=== PATIENT | female | born 1980 | race Two or more races ===

== ENCOUNTER 2025-10-13 00:13 | Emergency (ER) | payer OTHER ==
[~2025-10-13] VITALS: Ht 165.1 cm; Wt 72.6 kg
[2025-10-13] MEDS ORDERED: KETOROLAC TROMETHAMINE 30 MG VIAL IV STA (01:31)
[2025-10-13] MEDS ORDERED: KETOROLAC TROMETHAMINE 30 MG VIAL ONE (01:44)
[2025-10-13 02:45] LABS: BASO % 0.6 % (0.1-1.2); EOS # 0.09 (0.04-0.54); EOS % 1.7 % (0.7-7.0); LYMPH # 1.28 (1.18-3.74); LYMPH % 23.7 % (19.3-53.1); MEAN PLATELET VOLUME 11.60 fl (9.4-12.4); MONO # 0.42 (0.24-0.82); MONO % 7.8 % (4.7-12.5); NEUT # 3.58 (1.56-6.13); NEUT % 66.0 % (34.0-71.1); RED CELL DISTRIBUTION WIDTH 14.5 % (11.6-14.4)
[2025-10-13 02:59] LABS: URINE APPEARANCE Cloudy; URINE BILIRRUBIN Negative (NEGATIVE); URINE BLOOD Large; URINE COLOR Red; URINE GLUCOSE Negative (NEGATIVE); URINE KETONE Negative (NEGATIVE); URINE LEUKOCYTE Trace; URINE NITRATE Negative; URINE PROTEIN Trace (NEGATIVE); URINE UROBILINOGEN 0.2 E.U./dl
[2025-10-13 03:00] LABS: URINE BACTERIA 261.9 uL (0.0-1933); URINE EPITHELIAL CELLS 9.3 uL (0.0-38.8); URINE WBC 23.6 uL (0.0-23.2)
[2025-10-13 03:01] LABS: INR 1.01
[2025-10-13 03:06] LABS: BUN CREA RATIO 25 (7.0-25.0); CREATININE SERUM 0.67 mg/dL (0.55-1.02); GFR 96.06; GLUCOSE FASTING 108 mg/dL (65-100); OSMOLALITY SERUM 287 MOSM/KG (275-295)
[2025-10-13 03:11] LABS: HCG QUANTITATIVE < 1 mUI/mL (1-3)
[2025-10-13 03:12] LABS: URINE CAST 0.00 uL (0.0-1.40); URINE RBC > 10558.9 uL (0.0-20.8)
[2025-10-13] MEDS ORDERED: KETO10TA2 PO (06:51)
[2025-10-13 07:11] VITALS: BP 110/70; O2SAT 100
== END 2025-10-13 07:14 ==
LOC: ER 00:14
PROVIDERS: General Practice
DX: N93.8 Other specified abnormal uterine and vaginal bleeding (principal); R10.20 Pelvic and perineal pain unspecified side; D25.9 Leiomyoma of uterus, unspecified